=== PATIENT | female | born 1960 | race African-American/Black ===

== ENCOUNTER 2018-04-02 19:48 | Emergency (ER) | payer OTHER ==
[~2018-04-02] VITALS: Ht 165.1 cm; Wt 77.8 kg
[~2018-04-02 19:48] MED LIST: AMLODIPINE BESYL5 MG PO; AMOX TR-K CLV1 EAC4 PO; AMOXICILLIN250 MG PO; ASPIR-LOW81 MG PO; CLARITIN10 M3 PO; CYMBALTA20 MG PO; Ecotrin PO; FLEXERIL10 MG PO; FLONASE16 G1 BOTH NARES; INDERIDE 40/1 TABLET PO; LANSOPRAZOLE30 MG PO; LIDODERM 5% P1 PATCH TD; LORTAB 5-325 M1 EACH PO; MECLIZINE HCL25 MG PO; METOPROLOL SUCC50 MG PO; MOTRIN600 MG PO; MOTRIN800 MG PO; NAPRELAN375 MG PO; NAPROSYN500 MG PO; NEXIUM40 MG PO; NORCO 7.5/321 TABLET PO; OXYCODONE H5 MG/5 ML PO; PERCOCET 10/1 TABLET PO; PERCOCET 5/31 TABLET PO; PRILOSEC20 MG PO; PROAIR HFA8.5 GM IH; PROTONIX40 MG PO; RANITIDINE HCL300 MG PO; TRAZAMINE CONVE50 MG PO; VALIUM5 MG PO; ZANTAC150 MG PO; ZESTRIL,PRINIVI40 MG PO; ZOCOR10 MG PO; [UNRECOGNIZED DRUG - OTHER] PO
[2018-04-02 20:54] LABS: HEMATOCRIT 40.1 % (36.0-46.0); HEMOGLOBIN 13.3 G/DL (11.9-15.5); MCH 30.2 PG (29.0-34.0); MCHC 33.2 G/DL (30.0-36.0); MCV 90.9 FL (83-99); PLATELET COUNT 237 K/uL (156-360); RBC DIS.WIDTH-CV 13.4 % (11.8-14.6); RBC DIS.WIDTH-SD 45.1 % (39-53); RED BLOOD COUNT 4.41 M/uL (3.80-5.20); WHITE BLOOD COUNT 6.4 K/uL (4.1-10.2)
[2018-04-02 21:01] LABS: CHLORIDE 107 mEq/L (99-109); POTASSIUM 3.9 mEq/L (3.7-5.4); SODIUM 143 mEq/L (136-147)
[2018-04-02 21:03] LABS: GLUCOSE 80 mg/dL (70-99)
[2018-04-02 21:07] LABS: CREATININE 0.9 mg/dL (0.6-1.3); GFR ESTIMATE (CALCULATED) > 59 mL/min/
[2018-04-02 21:08] LABS: UREA NITROGEN (BUN) 15 mg/dL (9-23)
[2018-04-02 21:24] LABS: APPEARANCE SL.HAZY ((CLEAR)); BILIRUBIN NEGATIVE; BLOOD SMALL; COLOR YELLOW ((YELLOW)); GLUCOSE (STRIP) NEGATIVE; KETONES NEGATIVE; LEUKOCYTES SMALL; NITRITE NEGATIVE; PROTEIN (STRIP) NEGATIVE; UROBILINOGEN 0.2 MG/DL (0.2-1.0)
[2018-04-02 21:33] LABS: BACTERIA NONE SEEN /HPF; EPITHELIAL CELLS RARE /HPF; MUCUS NONE SEEN /LPF; RED BLOOD CELLS 0-5 /HPF (0-5); WHITE BLOOD CELLS 0-5 /HPF (0-5)
[2018-04-02] MEDS ORDERED: FLEXERIL10 MG PO (23:20)
[2018-04-02] MEDS ORDERED: ULTRAM50 MG PO (23:20)
[2018-04-02 23:37] VITALS: BP 169/101
== END 2018-04-02 23:38 | disposition home or self-care (01) ==
LOC: EME 19:48
PROVIDERS: Nurse Practitioner Family
DX: M25.551 Pain in right hip (principal); R10.2 Pelvic and perineal pain; M79.651 Pain in right thigh; R20.8 Other disturbances of skin sensation; R11.0 Nausea; I10 Essential (primary) hypertension; R10.32 Left lower quadrant pain; N28.1 Cyst of kidney, acquired; K57.30 Diverticulosis of large intestine without perforation or abscess without bleeding; R31.9 Hematuria, unspecified; Z86.14 Personal history of Methicillin resistant Staphylococcus aureus infection; Z90.710 Acquired absence of both cervix and uterus; Z87.442 Personal history of urinary calculi
CPT/HCPCS: 73502; 74177; 80048; 81003; 85027; 99281; 99285; J1885; J7030